=== PATIENT | female | born 2000 | race Hispanic/Latino ===

== ENCOUNTER 2022-01-16 14:27 | Emergency (ER) | payer OTHER ==
[2022-01-16 17:43] LABS: HCG Qualitative,Urine Negative (Negative)
[2022-01-16 17:58] LABS: Bilirubin,Urine NEG (Negative); Blood,Urine MOD (Negative); Color,Urine Yellow (Yellow); Protein,Urine <15 mg/dL mg/dL (Negative); Urobilinogen,Urine < 2.0 mg/dL (<2.0)
--- NOTE | 2022-01-16 19:45 | Emergency Department Report ---
ED General Adult HPI - General Chief complaint: Nausea/Vomiting/Diarrhea Stated complaint: WEAK, N/V PUI?: No Time Seen by Provider: 01/16/22 19:04 Source: patient Mode of arrival: Ambulatory Limitations: No Limitations - History of Present Illness Initial comments: This is a 21-year-old female with no prior medical history presents to the ED today complaining of nausea and vomiting and diarrhea that began this morning. Patient states that every 2-3 hours she would have a vomiting episode. Patient states that watery loose stools has no blood in it. Patient states she usually has regular cycles and had a last menstrual period about 2 months ago. Patient states she is unsure if she might be . Patient denies any fever, chills, shortness of breath, chest pain, headache or any other complaints. Severity scale (0 -10): 0 - Related Data Previous Rx's Medication Instructions Recorded Last Taken Type Ondansetron [Zofran ODT TAB] 8 mg PO Q8HR #30 tab 01/16/22 Unknown Rx Allergies Allergy/AdvReac Type Severity Reaction Status Date / Time No Known Allergies Allergy Unverified 01/16/22 15:39 ED Review of Systems ROS: Stated complaint: WEAK, N/V Other details as noted in HPI Comment: All other systems reviewed and negative ED Past Medical Hx - Medications Home Medications: Home Medications Medication Instructions Recorded Confirmed Last Taken Type Ondansetron [Zofran ODT TAB] 8 mg PO Q8HR #30 tab 01/16/22 Unknown Rx ED Physical Exam - General Limitations: No Limitations General appearance: alert - Head Head exam: Present: atraumatic - Eye Eye exam: Present: normal appearance, PERRL - Neck Neck exam: Present: normal inspection, full ROM - Respiratory Respiratory exam: Present: normal lung sounds bilaterally. Absent: respiratory distress, wheezes - Cardiovascular Cardiovascular Exam: Present: regular rate, normal rhythm - GI/Abdominal GI/Abdominal exam: Present: soft, normal bowel sounds. Absent: distended, tend erness, guarding, rebound - Extremities Exam Extremities exam: Present: normal inspection - Neurological Exam Neurological exam: Present: alert, oriented X3, CN II-XII intact - Skin Skin exam: Present: warm, dry, intact ED Course Vital Signs 01/16/22 15:30 Temperature 99.6 F Pulse Rate 124 H Respiratory 20 Rate Blood Pressure 170/65 [Right] O2 Sat by Pulse 96 Oximetry ED Medical Decision Making - Medical Decision Making 21-year-old female who presented with symptoms of gastroenteritis. Patient is in no acute distress throughout ED stay she had no episode of vomiting or diarrhea. Discussed results with patient. Discussed bowel rest, brat diet and follow-up with primary care physician. Vital signs are normal. Patient understand instructions and states she will follow-up. At this time patient is safe for discharge and has no other complaints. She is sitting comfortably in the ED chair - Differential Diagnosis , gastroenteritis, Critical care attestation.: If time is entered above; I have spent that time in minutes in the direct care of this critically ill patient, excluding procedure time. ED Disposition Clinical Impression: Gastroenteritis Disposition: 01 HOME / SELF CARE / HOMELESS Is pt being admited?: No Does the pt Need Aspirin: No Condition: Stable Instructions: Viral Gastroenteritis, Adult, [id number] Additional Instructions: Make sure to follow up with the primary care physician as discussed. Take all your medications as you've been prescribed. If you have any worsening symptoms or develop new symptoms please return to ED immediately. Prescriptions: Ondansetron [Zofran ODT TAB] 8 mg PO Q8HR #30 tab Referrals: [facility] [Outside] - 3-5 Days [facility] [Outside] - 3-5 Days Forms: Work/School Release Form(ED) Time of Disposition: 19:58
[2022-01-16 20:19] VITALS: BP 167/62
== END 2022-01-16 20:26 | disposition home or self-care (01) ==
LOC: ED 14:27
DX: K52.9 Noninfective gastroenteritis and colitis, unspecified (principal)
CPT/HCPCS: 81001; 81025; 99283